=== PATIENT | female | born 1965 | race Caucasian/White ===

== ENCOUNTER → 2020-01-14 14:17 | Outpatient (CLI) | payer OTHER, SELFPAY ==
[2020-01-14 17:05] LABS: Influenza A - CEPHEID Flu A NEGATIVE (NEGATIVE); Influenza B - CEPHEID Flu B NEGATIVE (NEGATIVE)
[2020-01-16 14:36] LABS: COVID19 Sendout Not Detected (Not Detected)
== END ==
PROVIDERS: Visit Provider Physician Assistant
DX: Z20.828 Contact with and (suspected) exposure to other viral communicable diseases (principal); R05 Cough
CPT/HCPCS: 87502; 87635

== ENCOUNTER → 2020-08-21 | Outpatient (CLI) | payer OTHER, SELFPAY | PROVIDERS: Referring Provider Internal Medicine; Visit Provider Internal Medicine | DX: Z23 Encounter for immunization (principal) | CPT/HCPCS: 90471; 90686 ==

== ENCOUNTER 2020-09-26 19:18 | Emergency (ER) | payer OTHER, SELFPAY ==
[2020-09-26] VITALS (12 sets, daily range): BP systolic 136–207; BP diastolic 69–101; PULSE 78–129; RESP 16–24; TEMP 37; O2SAT 95–99
--- NOTE | 2020-09-26 19:30 | DI.RAD.S_ITS ---
PROCEDURE: XR CHEST 1V INDICATIONS: shortness of breath TECHNIQUE: One view of the chest was acquired. COMPARISON: None. FINDINGS: Surgical changes and devices: None. Lungs and pleura: Lungs are clear. No pleural effusions or pneumothorax. Mediastinum: Mediastinal contours appear normal. Heart size is normal. Bones and chest wall: No suspicious bony lesions. Overlying soft tissues appear unremarkable. IMPRESSION: No acute cardiopulmonary disease process. Dictated by: Dorys Dexter MD, PhD on 09/26/2020 at 21:14 Approved by: Dorys Dexter MD, PhD on 09/26/2020 at 21:14
[2020-09-26 19:51] LABS: COVID19 -Nasal RAPID Negative (Negative)
[2020-09-26 20:05] LABS: Add Manual Diff / Slide Review NO; Basophils Absolute Auto 0 /uL (0-100); Basophils Percent Auto 0.6 % (0-2); Eosinophils Absolute Auto 100 /uL (0-450); Eosinophils Percent Auto 1.3 % (2-4); Hematocrit 41.5 % (36-46); Lymphocytes Absolute Auto 2500 /uL (1100-4500); Lymphocytes Percent Auto 33.7 % (25-40); Mean Corpuscular HGB Conc 33.8 % (30-36); Mean Corpuscular Hemoglobin 30.5 PG (26-34); Mean Corpuscular Volume 90.3 fL (80-100); Monocytes Absolute Auto 300 /uL (0-900); Monocytes Percent Auto 4.2 % (3-14); Neutrophils Absolute Auto 4400 /uL (1500-7000); Neutrophils Percent Auto 60.2 % (50-75); Platelet Count 366 X10^3/uL (150-400); Red Cell Distribution Width 12.5 % (11.6-14.8); White Blood Cell Count 7.3 X10^3/uL (4.5-11.0)
[2020-09-26] MEDS: SODIUM CHLORIDE 0.9% 1,000 ML 125 ML IV (20:15)
[2020-09-26 20:16] LABS: Lactate (Lactic Acid) 0.9 mmol/L (0.7-2.1)
[2020-09-26 20:17] LABS: D Dimer < 200 ng/mL (<230)
[2020-09-26 20:20] LABS: Alanine Aminotransferase 35 IU/L (<35); Albumin Globulin Ratio 1.3 (1.0-2.8); Alkaline Phosphatase 79 U/L (38-126); Aspartate Aminotransferase 32 IU/L (14-36); BUN Creatinine Ratio 16.7 (6-22); Bilirubin Total 0.4 mg/dL (0.2-1.3); Blood Urea Nitrogen 16 mg/dL (7-17); C-Reactive Protein Quant < 0.5 mg/dL (<1.0); Calcium 9.9 mg/dL (8.4-10.2); Carbon Dioxide 33 mmol/L (22-32); Chloride 102 mmol/L (98-107); Estimated Glomerular Filt Rate > 60.0 mL/min (>60); Globulin 3.8 g/dL (1.7-4.1); Glucose 125 mg/dL (70-100); HEMOLYSIS < 15 (0-50); Lactate Dehydrogenase 472 U/L (313-618); Potassium 3.9 mmol/L (3.4-5.1); Sodium 141 mmol/L (137-145); Total Protein 8.8 g/dL (6.3-8.2)
[2020-09-26 20:28] LABS: NT-proBNP (BNP-Adult 18+) 566 pg/mL (<125)
[2020-09-26 20:32] LABS: Procalcitonin < 0.05 ng/mL (<0.5)
[2020-09-26 20:54] LABS: Ferritin 54 ng/mL (11-264)
[2020-09-26 21:37] LABS: COVID19 -Nasal RAPID Negative (Negative)
--- NOTE | 2020-09-26 22:41 | ED_ITS ---
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 She states her headache came on rather gradually in seems to be worsened by episodes of vomiting. She denies any photophobia or provocation with loud noise. She denies focal neurologic findings such as blurred vision, trouble with speech or numbness, tingling or weakness. She denies runny nose or sore throat but has had some dry and hacking cough. She feels fatigued and exertion seems to make her shortness of breath worse. She has also had some anterior chest pain that seems to be worse with coughing and deep breaths. She denies any exertional component to her pain. She has had a few episodes of nausea and vomiting but denies any abdominal pain, diarrhea, constipation or urinary complaints such as dysuria, frequency or urgency. She has been exposed to COVID patient's but always in full PPE. She has had similar headaches and chest pain with elevated blood pressure in the past. MD Complaint: headache Onset (ago): hour(s) Onset description: gradual Quality: aching and throbbing Relieving factors: nothing Other symptoms: chest pain and cough Treatments prior to arrival: none Review of Systems Constitutional Constitutional: Denies chills, Reports fatigue, Denies fever(s), Denies frequent falls, Denies lethargy and Denies weakness Eyes Eyes: Denies change in vision, Denies eye discharge, Denies irritation and Denies loss of vision ENT Ears, Nose, Mouth, and Throat: Denies change in voice, Denies dizziness, Denies neck pain, Denies sore throat and Denies throat swelling Cardiovascular Cardiovascular: Reports chest pain, Denies irregular heart rhythm, Denies lightheadedness, Denies palpitations, Reports dyspnea, Reports dyspnea on exertion and Denies orthopnea Respiratory Respiratory: Denies cough, Reports dyspnea, Reports dyspnea on exertion and D enies wheezing Gastrointestinal Gastrointestinal: Denies abdominal pain, Denies change in bowel habits, Denies diarrhea, Denies nausea and Denies vomiting Musculoskeletal Musculoskeletal: Denies neck pain and Denies numbness Integumentary/Breasts Skin/Breast: Denies pruritus, Denies erythema, Denies rash and Denies wounds Neurologic Neurologic: Denies behavioral changes, Denies confusion, Denies dizziness, Denies frequent falls, Denies loss of vision, Denies numbness and Denies weakness Psychiatric Psychiatric: Denies anxiety, Denies behavioral changes, Denies confusion, Denies depression, Denies homicidal ideation and Denies suicidal ideation Endocrine Endocrine: Reports fatigue, Denies flushing and Denies palpitations Hematologic/Lymphatic Hematologic/Lymphatic: Denies easy bruising Allergic/Immunologic Allergic/Immunologic: Denies urticaria, Denies throat swelling and Denies wheezing Patient History Social History Smoking Status: Never smoker Smoking Status: Never smoker alcohol intake frequency: 0-2 drinks per day Alcohol type: beer Substance Use Type: does not use Exam Narrative Exam Narrative: GENERAL: [55] year old patient appears stated age. Well- nourished, well-developed patient, in moderate distress, clearly uncomfortable HEAD: Atraumatic. Normocephalic. EYES: Pupils equal round and reactive. Extraocular motions intact. No scleral icterus. No injection or drainage. ENT: Nose without bleeding, purulent drainage. Throat without erythema, tonsillar hypertrophy or exudate. Airway patent. NECK: Trachea midline. Non tender. No meningeal signs CARDIOVASCULAR: Tachycardic but regular rhythm without murmurs, gallops, or rubs. RESPIRATORY: Clear to auscultation. Breath sounds equal bilaterally. No wheezes, rales, or rhonchi. GASTROINTESTINAL: Abdomen soft, non-tender, nondistended. EXTREMITIES: No edema or joint tenderness. BACK: Nontender without deformity or crepitance. No flank tenderness. NEURO: AOx3. SKIN: No rash or erythema of visible areas NIH Stroke Scale 1a. LOC: Patient is alert and keenly responsive (0) 1b. LOC Questions: Patient answers both LOC questions accurately (0) 1c. LOC Commands: Patient performs both tasks correctly (0) 2. Best Gaze: Normal (0) 3. Visual: No visual loss (0) 4. Facial palsy: Normal symmetrical movements (0) 5. Motor arm: No drift (0) 6. Motor leg: No drift (0) 7. Limb ataxia: Absent (0) 8. Sensory: Normal (0) 9. Best language: No aphasia; normal (0) 10. Dysarthria: Normal (0) 11. Extinction and inattention: No abnormality (0) NIHSS: 0 Initial Vital Signs Initial Vital Signs: Vital Signs Temperature 98.6 F 09/26/20 19:28 Pulse Rate 129 H 09/26/20 19:28 Respiratory Rate 20 09/26/20 19:28 Blood Pressure 207/101 H 09/26/20 19:28 Pulse Oximetry 98 09/26/20 19:28 Course Orders Ordered: ED Orders 09/26/20 19:30 XR chest 1V Stat 09/26/20 19:34 COVID19 Stat EKG-12 Lead Stat 09/26/20 19:51 C-Reactive Protein Quant Stat Complete Blood Count AUTO DIFF Stat Comprehensive Metabolic Panel Stat D Dimer Stat Ferritin Stat Lactate (Lactic Acid) Stat Lactate Dehydrogenase Stat NT-proBNP (BNP-Adult 18+) Stat Procalcitonin Stat Troponin & CK Cardiac Panel Stat 09/26/20 20:17 Blood Culture Stat 09/26/20 20:21 COVID19 Stat 09/26/20 22:55 Troponin I Stat Discontinued Medications Sodium Chloride (Normal Saline 0.9%) 1,000 mls @ 125 mls/hr IV CONT PAULINA Last Infusion: 09/27/20 00:19 Dose: 0 mls/hr Documented by: Admin: 09/26/20 20:15 Dose: 125 mls/hr Documented by: KATHY Ketorolac Tromethamine (Ketorolac 60 Mg/2 Ml Vial) 15 mg IV NOW ONE Stop: 09/26/20 23:33 Last Admin: 09/26/20 23:36 Dose: 15 mg Documented by: KATHY Vital Signs Vital signs: Vital Signs - 8 hr 09/26/20 19:28 09/26/20 19:55 09/26/20 20:00 Temperature 98.6 F Pulse Rate 129 H 96 H 100 H Respiratory Rate 20 18 22 Blood Pressure 207/101 H 151/82 H 151/82 H Pulse Oximetry 98 99 98 09/26/20 20:30 09/26/20 21:00 09/26/20 21:29 Temperature Pulse Rate 98 H 99 H 127 H Respiratory Rate 18 16 24 Blood Pressure 153/72 H 160/73 H 136/69 Pulse Oximetry 97 99 99 09/26/20 21:30 09/26/20 21:55 09/26/20 22:00 Temperature Pulse Rate 103 H 95 H 93 H Respiratory Rate 22 17 Blood Pressure 145/84 H 161/96 H 149/80 H Pulse Oximetry 95 98 96 09/26/20 22:30 09/26/20 23:00 09/26/20 23:30 Temperature Pulse Rate 84 78 89 Respiratory Rate 20 18 19 Blood Pressure 151/86 H 152/79 H 140/74 Pulse Oximetry 99 99 97 09/27/20 00:00 Temperature Pulse Rate 90 Respiratory Rate 20 Blood Pressure 138/78 Pulse Oximetry 96 MDM - Headache Lab Data Result diagrams: 09/26/20 19:51 09/26/20 19:51 Labs: Lab Results 09/26/20 09/26/20 09/26/20 Range/Units 19:34 19:51 19:51 WBC (4.5-11.0) X10^3/uL RBC (4.0-5.2) X10^6/uL Hgb (12.0-16.0) g/dL Hct (36-46) % MCV (80-100) fL MCH (26-34) PG MCHC (30-36) % RDW (11.6-14.8) % Plt Count (150-400) X10^3/uL Neut % (Auto) (50-75) % Lymph % (Auto) (25-40) % [place] % (Auto) (3-14) % Eos % (Auto) (2-4) % Baso % (Auto) (0-2) % Neut # (Auto) (4582-7183) /uL Lymph # (Auto) (7458-2297) /uL [place] # (Auto) (0-900) /uL Eos # (Auto) (0-450) /uL Baso # (Auto) (0-100) /uL D-Dimer < 200 (<230) ng/mL Sodium (137-145) mmol/L Potassium (3.4-5.1) mmol/L Chloride (98-107) mmol/L Carbon Dioxide (22-32) mmol/L BUN (7-17) mg/dL Creatinine (0.52-1.04) mg/dL Estimated GFR (>60) mL/min BUN/Creatinine Ratio (6-22) Glucose (70-100) mg/dL Lactate (0.7-2.1) mmol/L Calcium (8.4-10.2) mg/dL Ferritin (11-264) ng/mL Total Bilirubin (0.2-1.3) mg/dL AST (14-36) IU/L ALT (<35) IU/L Alkaline Phosphatase (38-126) U/L Lactate Dehydrogenase (313-618) U/L Total Creatine Kinase (30-135) U/L CK-MB (CK-2) CK-MB (CK-2) Rel Index Troponin I (0.01-0.034) ng/mL C-Reactive Protein (<1.0) mg/dL NT-Pro-B Natriuret Pep (<125) pg/mL Total Protein (6.3-8.2) g/dL Albumin (3.5-5.0) g/dL Globulin (1.7-4.1) g/dL Albumin/Globulin Ratio (1.0-2.8) Procalcitonin < 0.05 (<0.5) ng/mL COVID-19 PCR Negative (Negative) 09/26/20 09/26/20 09/26/20 Range/Units 19:51 19:51 19:51 WBC 7.3 (4.5-11.0) X10^3/uL RBC 4.60 (4.0-5.2) X10^6/uL Hgb 14.0 (12.0-16.0) g/dL Hct 41.5 (36-46) % MCV 90.3 (80-100) fL MCH 30.5 (26-34) PG MCHC 33.8 (30-36) % RDW 12.5 (11.6-14.8) % Plt Count 366 (150-400) X10^3/uL Neut % (Auto) 60.2 (50-75) % Lymph % (Auto) 33.7 (25-40) % [place] % (Auto) 4.2 (3-14) % Eos % (Auto) 1.3 L (2-4) % Baso % (Auto) 0.6 (0-2) % Neut # (Auto) 4400 (6139-6621) /uL Lymph # (Auto) 2500 (9714-4862) /uL [place] # (Auto) 300 (0-900) /uL Eos # (Auto) 100 (0-450) /uL Baso # (Auto) 0 (0-100) /uL D-Dimer (<230) ng/mL Sodium 141 (137-145) mmol/L Potassium 3.9 (3.4-5.1) mmol/L Chloride 102 (98-107) mmol/L Carbon Dioxide 33 H (22-32) mmol/L BUN 16 (7-17) mg/dL Creatinine 0.96 (0.52-1.04) mg/dL Estimated GFR > 60.0 (>60) mL/min BUN/Creatinine Ratio 16.7 (6-22) Glucose 125 H (70-100) mg/dL Lactate 0.9 (0.7-2.1) mmol/L Calcium 9.9 (8.4-10.2) mg/dL Ferritin 54 (11-264) ng/mL Total Bilirubin 0.4 (0.2-1.3) mg/dL AST 32 (14-36) IU/L ALT 35 H (<35) IU/L Alkaline Phosphatase 79 (38-126) U/L Lactate Dehydrogenase 472 (313-618) U/L Total Creatine Kinase 75 (30-135) U/L CK-MB (CK-2) TNP CK-MB (CK-2) Rel Index TNP Troponin I < 0.012 (0.01-0.034) ng/mL C-Reactive Protein < 0.5 (<1.0) mg/dL NT-Pro-B Natriuret Pep 566 H (<125) pg/mL Total Protein 8.8 H (6.3-8.2) g/dL Albumin 5.0 (3.5-5.0) g/dL Globulin 3.8 (1.7-4.1) g/dL Albumin/Globulin Ratio 1.3 (1.0-2.8) Procalcitonin (<0.5) ng/mL COVID-19 PCR (Negative) 09/26/20 09/26/20 Range/Units 20:21 22:55 WBC (4.5-11.0) X10^3/uL RBC (4.0-5.2) X10^6/uL Hgb (12.0-16.0) g/dL Hct (36-46) % MCV (80-100) fL MCH (26-34) PG MCHC (30-36) % RDW (11.6-14.8) % Plt Count (150-400) X10^3/uL Neut % (Auto) (50-75) % Lymph % (Auto) (25-40) % [place] % (Auto) (3-14) % Eos % (Auto) (2-4) % Baso % (Auto) (0-2) % Neut # (Auto) (0694-5635) /uL Lymph # (Auto) (5894-3473) /uL [place] # (Auto) (0-900) /uL Eos # (Auto) (0-450) /uL Baso # (Auto) (0-100) /uL D-Dimer (<230) ng/mL Sodium (137-145) mmol/L Potassium (3.4-5.1) mmol/L Chloride (98-107) mmol/L Carbon Dioxide (22-32) mmol/L BUN (7-17) mg/dL Creatinine (0.52-1.04) mg/dL Estimated GFR (>60) mL/min BUN/Creatinine Ratio (6-22) Glucose (70-100) mg/dL Lactate (0.7-2.1) mmol/L Calcium (8.4-10.2) mg/dL Ferritin (11-264) ng/mL Total Bilirubin (0.2-1.3) mg/dL AST (14-36) IU/L ALT (<35) IU/L Alkaline Phosphatase (38-126) U/L Lactate Dehydrogenase (313-618) U/L Total Creatine Kinase (30-135) U/L CK-MB (CK-2) CK-MB (CK-2) Rel Index Troponin I < 0.012 (0.01-0.034) ng/mL C-Reactive Protein (<1.0) mg/dL NT-Pro-B Natriuret Pep (<125) pg/mL Total Protein (6.3-8.2) g/dL Albumin (3.5-5.0) g/dL Globulin (1.7-4.1) g/dL Albumin/Globulin Ratio (1.0-2.8) Procalcitonin (<0.5) ng/mL COVID-19 PCR Negative (Negative) Imaging Data Chest x-ray: Radiologist's Impression: Saniya Delgado 55 F [address] [id number] ReportSigned Patient: David Delgado#: [id number]: 1965Acct:[id number]/Sex: 55 / FDate of Service: 09/26/20Loc: EDAccession Number: [id number] Procedure: XR chest 1V Ordering Provider: Gilmar Barrera D.O. PROCEDURE: XR CHEST 1V INDICATIONS: shortness of breath TECHNIQUE: One view of the chest was acquired. COMPARISON: None. FINDINGS: Surgical changes and devices: None. Lungs and pleura: Lungs are clear. No pleural effusions or pneumothorax. Mediastinum: Mediastinal contours appear normal. Heart size is normal. Bones and chest wall: No suspicious bony lesions. Overlying soft tissues appear unremarkable. IMPRESSION: No acute cardiopulmonary disease process. Dictated by: Dorys Dexter MD, PhD on 09/26/2020 at 21:14 Approved by: Dorys Dexter MD, PhD on 09/26/2020 at 21:14 [facility] Narrative Medical decision making narrative: Vitals and symptoms are greatly improved after above stated therapies. She has no oxygen requirements and no abnormal lung findings on exam or imaging. She's had two COVID swabs return negative. Cardiac ischemia considered as a possible part of the picture but EKG is non ischemic, and troponin x2 were normal. Multiple causes of chest pain considered including NH, PE, pneumothorax, pneumonia, aortic dissection, and pleurisy. Patient reports no radiation, no diaphoresis, no provocation with exertion, and no vomiting. We had a lengthy discussion about most likely diagnosis and a viral syndrome remains at the top of the list, and though her COVID is negative she is early in the course of illness and it is known that we can experience false negatives early in the process. 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 We discussed her taking baby aspirin daily for its ability to inhibit viral replication, as well as antiplatelet activities. Furthermore we discussed obtaining a home pulse oximeter. She's been given return precautions and has had her questions answered to her apparent satisfaction. Discharge Plan Departure Patient Disposition: Home Clinical Impression: Acute viral syndrome Instructions: Coronavirus Disease 2019 Activity Restrictions/Additional Instructions: *You have been diagnosed with [viral syndrome, but due to the timing of your symptoms and presentation we cannot rule out COVID-19] *What to do: * per recommendations from the CDC and the [facility] Department of Health * stay home except to get medical care. Restrict activities outside your home, except for getting medical care. Do not go to work, school, or public areas. Avoid using public transportation, ride sharing, or taxis. * separate yourself from other people in your home. * call ahead before visiting your doctor * Wear a facemask * Cover your coughs and sneezes * Clean your hands often * Avoid sharing household items * Clean all high-touch services every day * Monitor your symptoms and seek prompt medical attention if your illness is worsening, particularly with difficulty in breathing. You may discontinue your isolation when: 1. You have been fever-free for at least 24 hours without the use of fever reducing medication, AND 2. Your symptoms are getting better 3. At least 10 days have passed since symptoms first appeared Individuals with laboratory confirmed COVID-19 who have not had any symptoms may discontinue home isolation when at least 10 days have passed since the date of their first COVID-19 diagnostic test and have had no subsequent illness
[2020-09-26 22:55] LABS: Creatine Kinase 75 U/L (30-135)
[2020-09-26 23:09] LABS: Troponin I < 0.012 ng/mL (0.01-0.034)
[2020-09-26 23:26] LABS: Troponin I < 0.012 ng/mL (0.01-0.034)
[2020-09-26] MEDS: KETOROLAC 60 MG/2 ML VIAL 15 MG IV (23:36)
[2020-09-27] VITALS: BP 138/78; PULSE 90; RESP 20; O2SAT 96
== END 2020-09-27 00:20 | disposition home or self-care (01) ==
PROVIDERS: Emergency Provider Emergency Medicine
DX: B34.9 Viral infection, unspecified (principal); R06.02 Shortness of breath; R51.9 Headache, unspecified; R05 Cough; R11.2 Nausea with vomiting, unspecified; I10 Essential (primary) hypertension; R07.9 Chest pain, unspecified; Z20.828 Contact with and (suspected) exposure to other viral communicable diseases
CPT/HCPCS: 36415; 71045; 80053; 82550; 82728; 83605; 83615; 83880; 84145; 84484; 85025; 85379; 86140; 87040; 87635; 93005; 93010; 96361; 96374; 99281; 99284; J1885

== ENCOUNTER → 2020-10-02 11:47 | Outpatient (CLI) | payer OTHER, SELFPAY ==
[2020-10-02 12:31] LABS: Influenza A - CEPHEID Flu A NEGATIVE (NEGATIVE); Influenza B - CEPHEID Flu B NEGATIVE (NEGATIVE)
== END ==
PROVIDERS: Visit Provider Physician Assistant
DX: R50.9 Fever, unspecified (principal)
CPT/HCPCS: 87502

== ENCOUNTER → 2020-10-02 11:57 | Outpatient (CLI) | payer OTHER, SELFPAY ==
--- NOTE | 2020-10-02 11:59 | DI.RAD.S_ITS ---
PROCEDURE: XR CHEST 2V INDICATIONS: cough/shortness of breath TECHNIQUE: 2 views of the chest were acquired. COMPARISON: [facility], , XR CHEST 1V, 09/26/2020, 20:38. FINDINGS: Surgical changes and devices: None. Lungs and pleura: Lungs are clear. No pleural effusions or pneumothorax. Mediastinum: Mediastinal contours are normal. Heart size is normal. Bones and chest wall: No suspicious bony abnormalities. Soft tissues appear unremarkable. IMPRESSION: No acute cardiopulmonary abnormality. Dictated by: Michael Cooper M.D. on 10/02/2020 at 12:34 Approved by: Michael Cooper M.D. on 10/02/2020 at 12:35
== END ==
PROVIDERS: Referring Provider Physician Assistant; Visit Provider Physician Assistant
DX: R05 Cough (principal); R06.02 Shortness of breath; R50.9 Fever, unspecified
CPT/HCPCS: 71046; 87502

== ENCOUNTER → 2020-10-18 09:03 | Outpatient (CLI) | payer OTHER, SELFPAY ==
[2020-10-18] MEDS: COVID-19 VACC(MODERNA-1)/PF 100 MCG/0.5 ML VIAL IM (09:12)
== END ==
PROVIDERS: Visit Provider Internal Medicine
DX: Z23 Encounter for immunization (principal)
CPT/HCPCS: 0011A; 91301

== ENCOUNTER → 2020-11-14 14:33 | Outpatient (CLI) | payer OTHER, SELFPAY ==
[2020-11-14] MEDS: COVID-19 VACC #2, MRNA(MOD) 100 MCG/0.5 ML VIAL IM (14:37)
== END ==
PROVIDERS: Visit Provider Internal Medicine
DX: Z23 Encounter for immunization (principal)
CPT/HCPCS: 0012A; 91301

== ENCOUNTER 2021-03-23 08:53 | Emergency (ER) | payer OTHER, SELFPAY ==
[2021-03-23] VITALS (14 sets, daily range): BP systolic 140–188; BP diastolic 69–123; PULSE 80–106; RESP 24; TEMP 36.8; O2SAT 95–99; BMI 26.7
--- NOTE | 2021-03-23 09:26 | DI.RAD.S_ITS ---
PROCEDURE: XR CHEST 1V INDICATIONS: suspected sepsis TECHNIQUE: One view of the chest was acquired. COMPARISON: [facility], CR, XR CHEST 2V, 10/02/2020, 13:13. [facility], CR, XR CHEST 1V, 09/26/2020, 20:38. FINDINGS: Surgical changes and devices: None. Lungs and pleura: Lungs are clear. No pleural effusions or pneumothorax. Mediastinum: Mediastinal contours appear normal. Heart size is normal. Bones and chest wall: No suspicious bony lesions. Overlying soft tissues appear unremarkable. IMPRESSION: Normal for age, source of current sepsis symptoms is not seen. Dictated by: Nik Meyer M.D. on 03/23/2021 at 9:27 Approved by: Nik Meyer M.D. on 03/23/2021 at 9:27
[2021-03-23] MEDS: SODIUM CHLORIDE 0.9% 1,000 ML 1000 ML IV (10:00)
[2021-03-23 10:42] LABS: Add Manual Diff / Slide Review NO; Basophils Absolute Auto 100 /uL (0-100); Basophils Percent Auto 0.8 % (0-2); Eosinophils Absolute Auto 100 /uL (0-450); Eosinophils Percent Auto 1.1 % (2-4); Hemoglobin 14.1 g/dL (12.0-16.0); Lymphocytes Absolute Auto 1900 /uL (1100-4500); Lymphocytes Percent Auto 26.3 % (25-40); Mean Corpuscular HGB Conc 33.5 % (30-36); Mean Corpuscular Hemoglobin 30.8 PG (26-34); Monocytes Absolute Auto 400 /uL (0-900); Monocytes Percent Auto 4.8 % (3-14); Neutrophils Absolute Auto 4900 /uL (1500-7000); Platelet Count 323 X10^3/uL (150-400); Red Blood Cell Count 4.56 X10^6/uL (4.0-5.2); Red Cell Distribution Width 13.1 % (11.6-14.8); White Blood Cell Count 7.4 X10^3/uL (4.5-11.0)
[2021-03-23] MEDS: ONDANSETRON 4 MG/2 ML INJ IV (10:49)
[2021-03-23] MEDS: KETOROLAC 30 MG/ML VIAL IV (10:52)
--- NOTE | 2021-03-23 10:54 | ED_ITS ---
HPI - Nausea/Vomiting/Diarrhea General Chief complaint: Nausea/Vomiting/Diarrhea Stated complaint: back strain/nausea/diarrhea Time Seen by Provider: 03/23/21 10:17 Source: patient Mode of arrival: Ambulatory Limitations: no limitations History of Present Illness HPI Narrative: Patient is a 56-year-old female who presents with left flank pain. 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 Patient definitely spasms at times but now seems to be radiating around to her abdomen. She denies pain into her lower extremities. No weakness or pain point vertebral pain. Complaining more of pain in the paraspinal muscles. 2 days ago she had the start of nausea and diarrhea no bloody stools but definitely liquid stools. No fever or chills. She denies painful or frequent urination. MD complaint: nausea and diarrhea Onset (ago): day(s) Description of Diarrhea: watery Quality: cramping Pain Consistency: intermittent Related Data Previous Rx's Medication Instructions Recorded baclofen 20 mg tablet 20 mg PO TID 10 Days #30 tab 03/20/21 cyclobenzaprine 5 mg PO TID PRN #10 tab 03/23/21 ondansetron 4 mg PO Q8H PRN #10 tab 03/23/21 Allergies Allergy/AdvReac Type Severity Reaction Status Date / Time levofloxacin [From Levaquin] Allergy Severe Tendon Verified 03/20/21 11:27 rupture metoclopramide [From Reglan] Allergy Severe Anaphylaxis Verified 03/20/21 11:27 Penicillins Allergy Hives Verified 03/20/21 11:27 promethazine [From Phenergan] AdvReac Verified 03/23/21 10:44 Review of Systems Review of Systems Narrative: GENERAL: Denies chills, fatigue, malaise, fever, sweats, travel HEENT: Denies sinus pain, ear pain, sore throat, difficulty swallowing, neck pain RESPIRATORY: Denies dyspnea, cough, wheezing, hemoptysis, sputum. CARDIOVASCULAR: Denies chest pain, palpitations, orthopnea, edema GASTROINTESTINAL: See HPI : Has flank pain, see HPI MUSCULOSKELETAL: Denies weakness, joint pain, or bony pain SKIN: No rash, no erythema, no pruritus NEUROLOGIC: Denies weakness, dizziness, headache, numbness, change in speech, confusion PSYCHIATRIC: No concerning psychosocial issues. 12 point review of systems is negative except for those stated above and HPI Patient History Surgical History Status post appendectomy Status post cholecystectomy Social History Smoking Status: Never smoker Smoking Status: Never smoker alcohol intake frequency: 0-2 drinks per day Alcohol type: beer Substance Use Type: does not use Exam Initial Vital Signs Initial Vital Signs: Vital Signs Temperature 98.3 F 03/23/21 09:21 Pulse Rate 106 H 03/23/21 09:21 Respiratory Rate 24 03/23/21 09:21 Blood Pressure 188/123 H 03/23/21 09:21 Pulse Oximetry 96 03/23/21 09:21 GENERAL: Alert well-appearing 56-year-old female and in no acute distress. HEENT: Head atraumatic,EOMI, pupils reactive, face symmetric, moist mucous membranes CARDIOVASCULAR: Regular rate and rhythm without murmurs, rubs or gallops. RESPIRATORY: Breath sounds equal bilaterally, no wheezes rales or rhonchi. ABDOMEN: Soft, nontender. Normoactive bowel sounds all 4 quadrants. No guarding or rebound. : Mild left CVA tenderness BACK: No mid line tenderness. EXTREMITIES: Normal range of motion, no clubbing or edema. Neurovascularly intact NEUROLOGICAL: Alert and oriented x4.Normal gait and speech. Cranial nerves II through XII grossly intact. SKIN: Warm, dry, no laceration, no petechiae, no rashes or lesions. Course Orders Ordered: ED Orders 03/23/21 10:10 GI Panel (Film Array) Stat 03/23/21 10:15 Blood Culture Stat Complete Blood Count AUTO DIFF Stat Comprehensive Metabolic Panel Stat Lactate (Lactic Acid) Stat Lipase Stat Procalcitonin Stat 03/23/21 10:54 CT abdomen pelvis w con Stat Discontinued Medications Acetaminophen (Acetaminophen 325 Mg Tablet) 975 mg PO NOW ONE Stop: 03/23/21 14:17 Last Admin: 03/23/21 14:58 Dose: Not Given Documented by: RSTONE Sodium Chloride (Normal Saline 0.9%) 1,000 mls @ 1,000 mls/hr IV BOLUS ONE Stop: 03/23/21 10:25 Last Infusion: 03/23/21 11:55 Dose: 0 mls/hr Documented by: Admin: 03/23/21 10:00 Dose: 1,000 mls/hr Documented by: DEVIN Ketorolac Tromethamine (Ketorolac 30 Mg/Ml Vial) 30 mg IV NOW ONE Stop: 03/23/21 10:51 Last Admin: 03/23/21 10:52 Dose: 30 mg Documented by: DEVIN Ondansetron HCl (Ondansetron 4 Mg/2 Ml Inj) 4 mg IV NOW ONE Stop: 03/23/21 10:45 Last Admin: 03/23/21 10:49 Dose: 4 mg Documented by: DEVIN Vital Signs Vital signs: Vital Signs - 8 hr 03/23/21 10:30 03/23/21 10:31 03/23/21 11:00 Pulse Rate 90 90 80 Blood Pressure 169/84 H 154/89 H Pulse Oximetry 96 96 95 03/23/21 11:30 03/23/21 12:00 03/23/21 12:30 Pulse Rate 81 86 80 Blood Pressure 141/87 H 140/69 145/80 H Pulse Oximetry 95 96 97 03/23/21 13:00 03/23/21 13:30 03/23/21 13:33 Pulse Rate 83 92 H Blood Pressure 142/77 H 158/83 H Pulse Oximetry 97 97 99 03/23/21 15:18 Pulse Rate Blood Pressure 175/109 H Pulse Oximetry MDM - Nausea/Vomiting/Diarrhea Lab Data Attestation: I reviewed the patient's lab results. Result diagrams: 03/23/21 10:15 03/23/21 10:15 Labs: Lab Results 03/23/21 03/23/21 03/23/21 Range/Units 10:10 10:15 10:15 WBC 7.4 (4.5-11.0) X10^3/uL RBC 4.56 (4.0-5.2) X10^6/uL Hgb 14.1 (12.0-16.0) g/dL Hct 42.0 (36-46) % MCV 92.0 (80-100) fL MCH 30.8 (26-34) PG MCHC 33.5 (30-36) % RDW 13.1 (11.6-14.8) % Plt Count 323 (150-400) X10^3/uL Neut % (Auto) 67.0 (50-75) % Lymph % (Auto) 26.3 (25-40) % Davidson % (Auto) 4.8 (3-14) % Eos % (Auto) 1.1 L (2-4) % Baso % (Auto) 0.8 (0-2) % Neut # (Auto) 4900 (3366-8767) /uL Lymph # (Auto) 1900 (6616-2275) /uL Davidson # (Auto) 400 (0-900) /uL Eos # (Auto) 100 (0-450) /uL Baso # (Auto) 100 (0-100) /uL Sodium 140 (137-145) mmol/L Potassium 4.0 (3.4-5.1) mmol/L Chloride 103 (98-107) mmol/L Carbon Dioxide 28 (22-32) mmol/L BUN 13 (7-17) mg/dL Creatinine 0.66 (0.52-1.04) mg/dL Estimated GFR > 60.0 (>60) mL/min BUN/Creatinine Ratio 19.7 (6-22) Glucose 119 H (70-100) mg/dL Lactate (0.7-2.1) mmol/L Calcium 10.4 H (8.4-10.2) mg/dL Total Bilirubin 0.5 (0.2-1.3) mg/dL AST 39 H (14-36) IU/L ALT 37 H (<35) IU/L Alkaline Phosphatase 74 (38-126) U/L Total Protein 8.7 H (6.3-8.2) g/dL Albumin 4.9 (3.5-5.0) g/dL Globulin 3.8 (1.7-4.1) g/dL Albumin/Globulin Ratio 1.3 (1.0-2.8) Lipase 59 (23-300) U/L Procalcitonin 0.05 (<0.5) ng/mL Stl C. cayetanensis PCR Not detected (Not Detect) Stool Rotavirus (PCR) Not detected (Not Detect) Stool Adenovirus (PCR) Not detected (Not Detect) Stool Astrovirus (PCR) Not detected (Not Detect) Stool Cryptosporidium PCR Not detected (Not Detect) Stl E.coli Shiga Tox PCR Not detected (Not Detect) St Sh/Enteroin Ecoli PCR Not detected (Not Detect) Stool E coli O157 PCR Not detected (Not Detect) Stl Enterotoxigenic E PCR Not detected (Not Detect) Stool EPEC (PCR) Not detected (Not Detect) Stl E. histolytica PCR Not detected (Not Detect) Stool Giardia Lamblia PCR Not detected (Not Detect) Stool Sapovirus (PCR) Not detected (Not Detect) Stl P. shigelloides PCR Not detected (Not Detect) St Y.enterocolitica PCR Not detected (Not Detect) Stool Vibrio (PCR) Not detected (Not Detect) Stl Vibrio cholerae PCR Not detected (Not Detect) Stl Enteroaggr Ecoli PCR Not detected (Not Detect) Stl Norovirus GI/GII PCR Not detected (Not Detect) Campylobacter (PCR) Not detected (Not Detect) C. difficile Tox (PCR) Not detected (Not Detect) Salmonella (PCR) Not detected (Not Detect) 03/23/21 Range/Units 10:15 WBC (4.5-11.0) X10^3/uL RBC (4.0-5.2) X10^6/uL Hgb (12.0-16.0) g/dL Hct (36-46) % MCV (80-100) fL MCH (26-34) PG MCHC (30-36) % RDW (11.6-14.8) % Plt Count (150-400) X10^3/uL Neut % (Auto) (50-75) % Lymph % (Auto) (25-40) % Davidson % (Auto) (3-14) % Eos % (Auto) (2-4) % Baso % (Auto) (0-2) % Neut # (Auto) (4257-9638) /uL Lymph # (Auto) (2780-1273) /uL Davidson # (Auto) (0-900) /uL Eos # (Auto) (0-450) /uL Baso # (Auto) (0-100) /uL Sodium (137-145) mmol/L Potassium (3.4-5.1) mmol/L Chloride (98-107) mmol/L Carbon Dioxide (22-32) mmol/L BUN (7-17) mg/dL Creatinine (0.52-1.04) mg/dL Estimated GFR (>60) mL/min BUN/Creatinine Ratio (6-22) Glucose (70-100) mg/dL Lactate 1.2 (0.7-2.1) mmol/L Calcium (8.4-10.2) mg/dL Total Bilirubin (0.2-1.3) mg/dL AST (14-36) IU/L ALT (<35) IU/L Alkaline Phosphatase (38-126) U/L Total Protein (6.3-8.2) g/dL Albumin (3.5-5.0) g/dL Globulin (1.7-4.1) g/dL Albumin/Globulin Ratio (1.0-2.8) Lipase (23-300) U/L Procalcitonin (<0.5) ng/mL Stl C. cayetanensis PCR (Not Detect) Stool Rotavirus (PCR) (Not Detect) Stool Adenovirus (PCR) (Not Detect) Stool Astrovirus (PCR) (Not Detect) Stool Cryptosporidium PCR (Not Detect) Stl E.coli Shiga Tox PCR (Not Detect) St Sh/Enteroin Ecoli PCR (Not Detect) Stool E coli O157 PCR (Not Detect) Stl Enterotoxigenic E PCR (Not Detect) Stool EPEC (PCR) (Not Detect) Stl E. histolytica PCR (Not Detect) Stool Giardia Lamblia PCR (Not Detect) Stool Sapovirus (PCR) (Not Detect) Stl P. shigelloides PCR (Not Detect) St Y.enterocolitica PCR (Not Detect) Stool Vibrio (PCR) (Not Detect) Stl Vibrio cholerae PCR (Not Detect) Stl Enteroaggr Ecoli PCR (Not Detect) Stl Norovirus GI/GII PCR (Not Detect) Campylobacter (PCR) (Not Detect) C. difficile Tox (PCR) (Not Detect) Salmonella (PCR) (Not Detect) Urine Dip Bedside Urine Glucose Negative Bedside Urine Bilirubin - Negative Bedside Urine Ketone - Negative Urine Specific [place] 1.020 Bedside Urine Occult Blood - Negative Bedside Urine pH 6.0 Bedside Urine Protein - Negative Bedside Urine Urobilinogen - Negative Bedside Urine Nitrite - Negative Bedside Urine Leukocytes - Negative Esterase Imaging Data CT scan - abdomen/pelvis: Radiologist's Impression: PROCEDURE: CT ABDOMEN PELVIS W CON INDICATIONS: left flank pain and abdominal pain TECHNIQUE: After the administration of intravenous contrast, 5 mm thick sections acquired from the diaphragm to the symphysis. 5 mm coronal and sagittal reformats were acquired. For radiation dose reduction, the following was used: automated exposure control, adjustment of mA and/or kV according to patient size. COMPARISON: None. FINDINGS: Image quality: Excellent. ABDOMEN: Lung bases: Lung bases are clear. Heart size is normal. Solid organs: Liver is normal in size and enhancement. Gallbladder appears surgically absent. Biliary system is non dilated. Pancreas enhances normally. Spleen is normal in size and enhancement. No adrenal nodules. Kidneys demonstrate normal size and enhancement, without hydronephrosis. Peritoneum and bowel: Bowel loops demonstrate normal wall thickness and caliber. No free fluid or air. Nodes and vessels: No retroperitoneal or mesenteric adenopathy by size criteria. Aorta and inferior vena cava are normal in size. Miscellaneous: No ventral hernias. PELVIS: Genitourinary: Bladder wall thickness is normal. Miscellaneous: No inguinal hernias or adenopathy. Bones: No suspicious bony lesions. No vertebral body compression fractures. IMPRESSION: Source of left-sided abdominal/flank pain not identified. The urinary tract stone is not seen. No bowel inflammation is seen. There is no evidence of inflammatory process along the paraspinous soft tissues and no evidence of discitis or o steomyelitis is found. Dictated by: Nik Meyer M.D. on 03/23/2021 at 12:02 MDM Narrative Medical decision making narrative: Patient blood work is overall reassuring. CT scan does not show any abnormalities. Awaiting for GI panel unfortunately was not collected at time sample was taken. Fortunately GI panel is negative she has had no further episodes in the ED. She has not required a lot for pain. Back pain seems to be related to musculoskeletal injury and spasm is. She had a specific incident of a moving patient and then having pain day or 2 later. Back pain is not helping at this time I recommend she stop taking it and start Flexeril. I discussed all findings with the patient, Education has been performed regarding treatment plan, diagnosis, warning signs and symptoms and all concerns have been addressed. Verbally agree with and understood all of the above. Discharge Plan Departure Patient Disposition: Home Clinical Impression: Abdominal pain Qualifiers: Abdominal location: left upper quadrant Qualified Code(s): R10.12 - Left upper quadrant pain Instructions: DI for Abdominal Pain-Adult Activity Restrictions/Additional Instructions: *You have been diagnosed with abdominal pain, back spasm *What to do: At this time blood work is overall reassuring CT scan negative. GI panel is also negative. Increase fluid intake as tolerated *Continue to take medications as directed--> [facility] [place] Zofran 4 mg every 8 hours as needed for nausea or vomiting Flexeril 5 mg every 8 hours if needed for muscle spasm Stop taking baclofen it does not work for you *Follow up with your primary care provider in 2-3 days *Return to ER if you should have worsening pain, inability to tolerate fluids, fever [or] any new, worsening or concerning symptoms Prescriptions: New ondansetron 4 mg tablet,disintegrating 4 mg PO Q8H PRN (Reason: nausea and vomiting) Qty: 10 RF: 0 cyclobenzaprine 5 mg tablet 5 mg PO TID PRN (Reason: muscle spasm) Qty: 10 RF: 0 No Action baclofen 20 mg tablet 20 mg PO TID 10 Days Qty: 30 RF: 0 Stand Alone Forms: Work Release Note
[2021-03-23 10:57] LABS: Lactate (Lactic Acid) 1.2 mmol/L (0.7-2.1)
[2021-03-23 10:58] LABS: Alanine Aminotransferase 37 IU/L (<35); Albumin 4.9 g/dL (3.5-5.0); Albumin Globulin Ratio 1.3 (1.0-2.8); Alkaline Phosphatase 74 U/L (38-126); Aspartate Aminotransferase 39 IU/L (14-36); BUN Creatinine Ratio 19.7 (6-22); Bilirubin Total 0.5 mg/dL (0.2-1.3); Blood Urea Nitrogen 13 mg/dL (7-17); Calcium 10.4 mg/dL (8.4-10.2); Carbon Dioxide 28 mmol/L (22-32); Chloride 103 mmol/L (98-107); Estimated Glomerular Filt Rate > 60.0 mL/min (>60); Globulin 3.8 g/dL (1.7-4.1); Glucose 119 mg/dL (70-100); HEMOLYSIS < 15 (0-50); Lipase 59 U/L (23-300); Sodium 140 mmol/L (137-145); Total Protein 8.7 g/dL (6.3-8.2)
[2021-03-23 11:15] LABS: Procalcitonin 0.05 ng/mL (<0.5)
[2021-03-23 14:49] LABS: Adenovirus F 40/41 Not Detected (Not Detect); Astrovirus Not Detected (Not Detect); Campylobacter Not Detected (Not Detect); Clostridium difficile toxin AB Not Detected (Not Detect); Cryptosporidium Not Detected (Not Detect); Cyclospora cayetanensis Not Detected (Not Detect); Entamoeba histolytica Not Detected (Not Detect); Enteroaggregative E.coli Not Detected (Not Detect); Enteropathogenic E.coli Not Detected (Not Detect); Enterotoxigenic E.coli It/st Not Detected (Not Detect); Giardia lamblia Not Detected (Not Detect); Norovirus GI/GII Not Detected (Not Detect); Plesiomonsa shigelloides Not Detected (Not Detect); Rotavirus A Not Detected (Not Detect); Salmonella Not Detected (Not Detect); Sapovirus Not Detected (Not Detect); Shiga-like toxin-prod E.coli Not Detected (Not Detect); Shigella/Enteroinvasive E.coli Not Detected (Not Detect); Vibrio Not Detected (Not Detect); Vibrio cholerae Not Detected (Not Detect); Yersinia enterocolitica Not Detected (Not Detect)
== END 2021-03-23 15:20 | disposition home or self-care (01) ==
PROVIDERS: Emergency Provider Emergency Medicine
DX: R10.12 Left upper quadrant pain (principal); R11.0 Nausea; R19.7 Diarrhea, unspecified
CPT/HCPCS: 36415; 71045; 74177; 80053; 81003; 83605; 83690; 84145; 85025; 87040; 87507; 93005; 96361; 96374; 96375; 99284; J1885; J2405

== ENCOUNTER 2021-03-28 23:52 | Emergency (ER) | payer OTHER, SELFPAY ==
[2021-03-29 00:05] VITALS: BP 156/100; PULSE 103; RESP 18; TEMP 36.7; O2SAT 98
--- NOTE | 2021-03-29 00:36 | ED_ITS ---
HPI - Back Pain/Injury General Chief Complaint: Back Pain/Injury Stated Complaint: back spasms/can't walk/sitting painful Time Seen by Provider: 03/28/21 23:53 Source: patient Mode of arrival: Wheelchair Limitations: no limitations History of Present Illness HPI Narrative: Patient is a 56-year-old female here for evaluation of left-sided back spasms and back pain. 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 She states that she was able to finish her shift been it was not until the next morning when she started having back pain. She was seen at the walk-in clinic afterwards and received a Toradol shot and some baclofen which she states only helped for short period of time. After that she was seen by this emergency department. Had CT scans and other workup that was unremarkable. She then has been seen by the walk-in clinic again because of continued symptoms. She states that the discomfort is on the left side of her back. It does extend upper back but now is also down into her left leg. No urinary symptoms. Related Data Previous Rx's Medication Instructions Recorded ondansetron 4 mg PO Q8H PRN #10 tab 03/23/21 cyclobenzaprine 5 mg tablet 5 mg PO TID PRN #30 tab 03/28/21 diazepam [Valium] 5 mg PO BID PRN #7 tab 03/29/21 hydrocodone-acetaminophen 1 tab PO Q6H PRN #6 tab 03/29/21 prednisone 20 mg PO DAILY #4 tab 03/29/21 Allergies Allergy/AdvReac Type Severity Reaction Status Date / Time levofloxacin [From Levaquin] Allergy Severe Tendon Verified 03/28/21 13:20 rupture metoclopramide [From Reglan] Allergy Severe Anaphylaxis Verified 03/28/21 13:20 Penicillins Allergy Hives Verified 03/28/21 13:20 promethazine [From Phenergan] AdvReac Verified 03/28/21 13:20 Review of Systems Constitutional Constitutional: Reports system reviewed and no additional complaints, except as documented Cardiovascular Cardiovascular: Reports system reviewed and no additional complaints, except as documented Respiratory Respiratory: Reports system reviewed and no additional complaints, except as documented Gastrointestinal Gastrointestinal: Reports system reviewed and no additional complaints, except as documented Musculoskeletal Musculoskeletal: Reports back pain, Reports radiating pain into limb and Reports tingling Integumentary/Breasts Skin/Breast: Denies rash Neurologic Neurologic: Reports tingling Hematologic/Lymphatic On Anticoagulants: No Allergic/Immunologic Allergic/Immunologic: Reports system reviewed and no additional complaints, except as documented Patient History Medical History Cough Surgical History Status post appendectomy Status post cholecystectomy Social History Smoking Status: Never smoker Smoking Status: Never smoker alcohol intake frequency: 0-2 drinks per day Alcohol type: beer Substance Use Type: does not use Exam Initial Vital Signs Initial Vital Signs: Vital Signs Temperature 98.1 F 03/29/21 00:05 Pulse Rate 103 H 03/29/21 00:05 Respiratory Rate 18 03/29/21 00:05 Blood Pressure 156/100 H 03/29/21 00:05 Pulse Oximetry 98 03/29/21 00:05 Const General: cooperative and comfortable Limitations: mental status not altered HENKS Head: normal to inspection Resp Effort & Inspection: normal respiratory effort Cardio Rate: tachycardic Back/Spine/Pelvis Thoracic/Lumbar Spine: paraspinal tenderness (Left-sided thoracolumbar paraspinal) Skin Lesions: no lesions Rashes: no rashes Neuro General: patient alert and patient awake Psych Appearance: grossly normal and well kempt Course Orders Ordered: Discontinued Medications Hydrocodone Bitart/Acetaminophen (Hydrocodone/Acet 5/325 Prepack) 1 bottle MISC SEEINSTR ONE Stop: 03/29/21 00:38 Last Admin: 03/29/21 00:43 Dose: 1 bottle Documented by: SAVANNA Diazepam (Diazepam 5 Mg Tablet) 5 mg PO NOW ONE Stop: 03/29/21 00:37 Last Admin: 03/29/21 00:43 Dose: 5 mg Documented by: SAVANNA Prednisone (Prednisone 20 Mg Tablet) 20 mg PO NOW ONE Stop: 03/29/21 00:37 Last Admin: 03/29/21 00:43 Dose: 20 mg Documented by: SAVANNA Vital Signs Vital signs: Vital Signs - 8 hr 03/29/21 00:05 Temperature 98.1 F Pulse Rate 103 H Respiratory Rate 18 Blood Pressure 156/100 H Pulse Oximetry 98 MDM - Back Pain/Injury MDM Narrative Medical decision making narrative: While trying to roll onto her right side she had an acute onset of the symptoms that she has been having for the past several days. During that time was able to feel the paraspinal muscles on the left and there was a obvious fullness of this area that did resolve when her symptoms improved. Given her prior workup here in the emergency department I do feel t hat her symptoms are muscular in origin. The radiation of the symptoms down into her left leg is relatively new. She has been on baclofen and Flexeril without any improvement of symptoms we will switch her to Valium. She was informed that this can make her drowsy. Will also start her on a short course of steroids. Also sent home with pain medication. She was informed that she should not take the Valium and the pain medication together. She has an appointment with a chiropractor tomorrow. Has appointment with a new primary doctor the beginning of next week. Feel that we can hold on further workup for now. She was given return precautions. She expressed understanding and agreement. Discharge Plan Departure Patient Disposition: Home Clinical Impression: Spasm of muscle of lower back Instructions: DI for Back Spasm Activity Restrictions/Additional Instructions: I recommend that you keep all of your scheduled medical appointments. I also recommend that you continue with the conservative measures to include heat/ice/massage/light stretching. The pain medicine and the Valium can both make you drowsy so I do not recommend you take both of these medicines simultaneously. Return to the emergency department for any new or worsening symptoms Prescriptions: New prednisone 20 mg tablet 20 mg PO DAILY Qty: 4 RF: 0 diazepam [Valium] 5 mg tablet 5 mg PO BID PRN (Reason: muscle spasm) Qty: 7 RF: 0 hydrocodone-acetaminophen 5-325 mg tablet 1 tab PO Q6H PRN (Reason: pain) Qty: 6 RF: 0 No Action cyclobenzaprine 5 mg tablet 5 mg PO TID PRN (Reason: muscle spasm) Qty: 30 RF: 0 ondansetron 4 mg tablet,disintegrating 4 mg PO Q8H PRN (Reason: nausea and vomiting) Qty: 10 RF: 0 Referrals: Miscellaneous,Doctor, MD [Primary Care Provider] -
[2021-03-29] MEDS: HYDROCODONE/ACET 5/325 PREPACK 1 BOTTLE MISC (00:43)
[2021-03-29] MEDS: diazePAM 5 MG TABLET PO (00:43)
[2021-03-29] MEDS: predniSONE 20 MG TABLET PO (00:43)
== END 2021-03-29 00:58 | disposition home or self-care (01) ==
PROVIDERS: Emergency Provider Emergency Medicine
DX: M62.830 Muscle spasm of back (principal)
CPT/HCPCS: 99283

== ENCOUNTER → 2021-04-11 14:17 | Outpatient (CLI) | payer OTHER, SELFPAY ==
--- NOTE | 2021-04-11 14:18 | DI.MRI.S_ITS ---
PROCEDURE: MR LUMBAR SPINE WO CON INDICATIONS: Radiculopathy, lumbar region TECHNIQUE: Noncontrast sagittal T1 spin echo and T2 fast echo, sagittal STIR, axial T1 and T2 fast spin echo through the lumbar spine. In cases with scoliosis, additional coronal T2 fast spin echo may be performed. COMPARISON: None. FINDINGS: Image quality: Excellent. Alignment and Curvature: No plain films are available for comparison, for numbering purposes. Thus, for the purposes of this examination, 5 lumbar type vertebral bodies will be presumed, as denoted on the montage panel. This should be confirmed and correlated with plain films, prior to any lumbar spinal intervention. Loss of normal cervical lordosis. Minimal grade 1 retrolisthesis of L2 on L3 and L3 on L4. Bone Marrow: Marrow is of normal overall signal. No acute vertebral body compression fractures. There is a hemangioma at L1. Minimal reactive signal within the endplates adjacent to the L2-L3, L3-L4, L4-L5, and L5-S1 intervertebral discs. Spinal Cord: Conus medullaris terminates at the L2-L3 disc space level. Visualized cord demonstrates normal signal and size. Paraspinous Soft Tissues: No paravertebral masses. T12-L1: Normal appearance. L1-L2: Normal appearance. L2-L3: Normal appearance. L3-L4: Mild disc desiccation and diffuse disc bulge. Mild canal stenosis. No foraminal stenosis. L4-L5: Moderate disc height loss and desiccation. Mild diffuse disc bulge. No significant canal, or foraminal stenosis. L5-S1: Moderate disc height loss and desiccation. Mild diffuse disc bulge. Mild bilateral facet hypertrophy. No significant canal stenosis. Moderate left and no right foraminal stenosis IMPRESSION: 1. Multilevel degenerative disc and facet disease, as well as ligamentum flavum hypertrophy and epidural lipomatosis. 2. Mild multilevel canal stenosis. 3. Multilevel foraminal stenoses, worst at L5-S1 on the left where there is moderate foraminal stenosis. 4. 5 lumbar type vertebral bodies were presumed for the current report. Plain films of the lumbar spine are recommended for confirmation, prior to any lumbar spinal intervention. Dictated by: Sunshine Cotter M.D. on 04/11/2021 at 15:18 Approved by: Sunshine Cotter M.D. on 04/11/2021 at 15:20
== END ==
PROVIDERS: PCP Physician Assistant; Referring Provider Physician Assistant; Visit Provider Physician Assistant
DX: M51.16 Intervertebral disc disorders with radiculopathy, lumbar region (principal); M51.17 Intervertebral disc disorders with radiculopathy, lumbosacral region; M48.07 Spinal stenosis, lumbosacral region; E88.2 Lipomatosis, not elsewhere classified
CPT/HCPCS: 72148

== ENCOUNTER → 2021-09-20 12:19 | Outpatient (CLI) | payer OTHER, SELFPAY | PROVIDERS: PCP Physician Assistant; Referring Provider Internal Medicine; Visit Provider Internal Medicine | DX: Z23 Encounter for immunization (principal) | CPT/HCPCS: 90471; 90682 ==

== ENCOUNTER → 2022-09-23 08:39 | Outpatient (CLI) | payer OTHER, SELFPAY ==
[2022-09-23 09:52] LABS: Add Manual Diff / Slide Review NO; Basophils Absolute Auto 100 /uL (0-100); Basophils Percent Auto 1.2 % (0-2); Eosinophils Absolute Auto 100 /uL (0-450); Eosinophils Percent Auto 2.1 % (2-4); Hematocrit 40.6 % (36-46); Hemoglobin 13.7 g/dL (12.0-16.0); Lymphocytes Absolute Auto 1800 /uL (1100-4500); Mean Corpuscular HGB Conc 33.9 % (30-36); Mean Corpuscular Volume 91.5 fL (80-100); Monocytes Absolute Auto 200 /uL (0-900); Monocytes Percent Auto 5.3 % (3-14); Neutrophils Absolute Auto 2300 /uL (1500-7000); Neutrophils Percent Auto 50.4 % (50-75); Platelet Count 323 X10^3/uL (150-400); Red Blood Cell Count 4.43 X10^6/uL (4.0-5.2); Red Cell Distribution Width 12.5 % (11.6-14.8); White Blood Cell Count 4.5 X10^3/uL (4.5-11.0)
[2022-09-23 10:16] LABS: Alanine Aminotransferase 24 IU/L (<35); Albumin 4.6 g/dL (3.5-5.0); Albumin Globulin Ratio 1.5 (1.0-2.8); Alkaline Phosphatase 58 U/L (38-126); Aspartate Aminotransferase 25 IU/L (14-36); BUN Creatinine Ratio 19.7 (6-22); Bilirubin Total 0.3 mg/dL (0.2-1.3); Blood Urea Nitrogen 14 mg/dL (7-17); Calcium 9.7 mg/dL (8.4-10.2); Carbon Dioxide 32 mmol/L (22-32); Chloride 102 mmol/L (98-107); Cholesterol 251 mg/dL (140-199); Estimated Glomerular Filt Rate > 60 mL/min (>60); Globulin 3.1 g/dL (1.7-4.1); Glucose 101 mg/dL (70-100); HDL Cholesterol 93 mg/dL (40-60); HEMOLYSIS < 15 (0-50); LDL Cholesterol Calculated 135 mg/dL (<100); Potassium 4.5 mmol/L (3.4-5.1); Sodium 141 mmol/L (137-145); Total Protein 7.7 g/dL (6.3-8.2); Triglycerides 114 mg/dL (35-150)
[2022-09-23 10:47] LABS: TSH w/ Reflex to FT4 1.66 uIU/mL (0.47-4.68)
[2022-09-23 18:12] LABS: Hemoglobin A1C% w Est Avg Glu 5.5 % (4.0-6.0)
[2022-09-24 08:13] LABS: Triiodothyronine T3 Total 72 ng/dL (71-180)
== END ==
PROVIDERS: PCP Family Medicine; Referring Provider Family Medicine; Visit Provider Family Medicine
DX: Z13.220 Encounter for screening for lipoid disorders (principal); R63.5 Abnormal weight gain; E11.9 Type 2 diabetes mellitus without complications; R05.3 Chronic cough
CPT/HCPCS: 36415; 80053; 80061; 83036; 84443; 84480; 85025

== ENCOUNTER → 2022-10-15 16:27 | Outpatient (CLI) | payer OTHER, SELFPAY | PROVIDERS: PCP Family Medicine; Referring Provider Internal Medicine; Visit Provider Internal Medicine | DX: Z23 Encounter for immunization (principal) | CPT/HCPCS: 90471; 90686 ==

== ENCOUNTER → 2022-12-31 11:22 | Outpatient (CLI) | payer OTHER, SELFPAY ==
[2022-12-31 13:09] LABS: Hemoglobin A1C% w Est Avg Glu 5.2 % (4.0-6.0)
[2022-12-31 13:12] LABS: Alanine Aminotransferase 29 IU/L (<35); Albumin 4.6 g/dL (3.5-5.0); Albumin Globulin Ratio 1.4 (1.0-2.8); Alkaline Phosphatase 59 U/L (38-126); Aspartate Aminotransferase 29 IU/L (14-36); BUN Creatinine Ratio 21.6 (6-22); Bilirubin Total 0.6 mg/dL (0.2-1.3); Blood Urea Nitrogen 16 mg/dL (7-17); Calcium 9.3 mg/dL (8.4-10.2); Carbon Dioxide 32 mmol/L (22-32); Chloride 99 mmol/L (98-107); Cholesterol 246 mg/dL (140-199); Estimated Glomerular Filt Rate > 60 mL/min (>60); Globulin 3.4 g/dL (1.7-4.1); Glucose 96 mg/dL (70-100); HDL Cholesterol 67 mg/dL (40-60); HEMOLYSIS < 15 (0-50); LDL Cholesterol Calculated 155 mg/dL (<100); Potassium 4.4 mmol/L (3.4-5.1); Sodium 139 mmol/L (137-145); Triglycerides 119 mg/dL (35-150)
[2022-12-31 16:09] LABS: Creatinine Urine Random 137.1 mg/dL
[2022-12-31 16:34] LABS: Microalbumin Urine Random < 0.6 mg/dL (0-1.6)
== END ==
PROVIDERS: PCP Family Medicine; Referring Provider Family Medicine; Visit Provider Family Medicine
DX: E11.9 Type 2 diabetes mellitus without complications (principal); I10 Essential (primary) hypertension; E78.2 Mixed hyperlipidemia
CPT/HCPCS: 36415; 80053; 80061; 82043; 82570; 83036

== ENCOUNTER 2023-04-17 14:46 | Day surgery (SDC) | payer OTHER, SELFPAY ==
[2023-04-17] VITALS (9 sets, daily range): BP systolic 142–162; BP diastolic 60–94; PULSE 64–96; RESP 10–18; TEMP 36.3–36.9; O2SAT 96–100; BMI 23.5
[2023-04-17] MEDS: LACTATED RINGERS 1,000 ML 125 ML IV (15:09)
--- NOTE | 2023-04-17 15:27 | PM.PREOP ---
Pre-operative Note Interval Note History & Physical reviewed/Exam performed by Physician: Yes Changes to H&P: No
--- NOTE | 2023-04-17 15:28 | PM.OP.COLON ---
Operative Date/Time/Diagnoses Date of procedure: 04/17/23 Pre-op diagnosis: family history of colon cancer, positive FIT, screening Post-op diagnosis: same Procedure & Clinicians Study performed: Colonoscopy Same procedure as scheduled: Yes Indications: Screening for colon cancer, positive test, family history of colon cancer Surgeon: Kat Schuler Procedure Notes Procedure in detail: Patient was taken to the endoscopy suite and placed in a left lateral decubitus position. A time-out was performed. With the help of anesthesiology provider, conscious sedation was induced and monitored throughout the case. A digital rectal exam was performed and there were no masses or strictures. The colonoscope was introduced into the anal canal and advanced through to the cecum. Manual manipualtion and abdominal pressure were required to traverse the colon. A photograph of the appendiceal orifice was obtained. The bowel prep was good/poor [place] bowel prep score of 2/3. The main issue with the prep was some hard particulates, like seeds, that were continuing to effect the suction tubing in the scope. As a result there were some areas where the liquid could not be fully evacuated and smaller polyps may have been missed in these few areas. The scope was withdrawn for a total of 15 minutes and no polyps were seen. There was evidence of scope trauma with mild/moderate bleeding of the mucosa in the sigmoid colon, of which a photograph was obtained. The scope was then withdrawn into the anal canal and internal hemorrhoidal piles appeared normal. Findings: other findings (seeds in prep that limited suction use resulting in a sub optimal exam in a few segments of the colon. ) Specimen(s): none sent Post-procedure Recommendations: Colonoscopy in 3 years Plan for aftercare: There were no polyps seen and I can feel confident that no major lesions are present. But because of the poor functioning of the suction and my inability to clear a few of the puddles of prep that remained in colon I would recommend a 3 year follow-up. With a family history of colon cancer and no polyps a 5 year follow-up would be recommended, so this is just 2 years had that to err on the safe side of safety.
[2023-04-17] MEDS: ONDANSETRON 4 MG/2 ML INJ IV (16:45)
[2023-04-17] MEDS: KETOROLAC 30 MG/ML VIAL IV (16:49)
[2023-04-17] MEDS: fentaNYL 100 MCG/2 ML INJ (17:20)
[2023-04-17] MEDS: fentaNYL 100 MCG/2 ML INJ 50 MCG IV (17:35)
[2023-04-17] MEDS: HYDROCODONE/ACET 5/325 TABLET 1 TAB PO (17:38)
[2023-04-17] MEDS: OXYCODONE/ACETAMINOPHEN 5/325 TABLET 1 TAB PO (18:08)
== END 2023-04-17 18:12 | disposition home or self-care (01) ==
PROVIDERS: PCP Nurse Practitioner Family; Referring Provider Surgery; Visit Provider Surgery
PROC: 0DJD8ZZ Inspection of Lower Intestinal Tract, Via Natural or Artificial Opening Endoscopic (ICD-10-PCS; CPT 45378; principal; 2023-04-17 15:45)
DX: Z12.11 Encounter for screening for malignant neoplasm of colon (principal); R19.5 Other fecal abnormalities; Z80.0 Family history of malignant neoplasm of digestive organs
CPT/HCPCS: 45378; J1885; J2405; J2704; J3010

== ENCOUNTER → 2023-05-22 14:22 | Outpatient (CLI) | payer OTHER, SELFPAY ==
[2023-05-22 15:20] LABS: Alanine Aminotransferase 32 IU/L (<35); Albumin 4.5 g/dL (3.5-5.0); Albumin Globulin Ratio 1.5 (1.0-2.8); Alkaline Phosphatase 77 U/L (38-126); Aspartate Aminotransferase 34 IU/L (14-36); BUN Creatinine Ratio 26.1 (6-22); Bilirubin Total 0.3 mg/dL (0.2-1.3); Blood Urea Nitrogen 18 mg/dL (7-17); Calcium 9.5 mg/dL (8.4-10.2); Carbon Dioxide 28 mmol/L (22-32); Chloride 100 mmol/L (98-107); Estimated Glomerular Filt Rate > 60 mL/min (>60); Glucose 94 mg/dL (70-100); HEMOLYSIS 25 (0-50); Sodium 136 mmol/L (137-145); Total Protein 7.5 g/dL (6.3-8.2)
[2023-05-22 15:21] LABS: Potassium 5.7 mmol/L (3.4-5.1)
[2023-05-23 04:10] LABS: Cholesterol HDL Ratio 3.1 ratio (0.0-4.4); Cholesterol,Total 226 mg/dL (100-199); HDL Cholesterol 73 mg/dL (>39); LDL Cholesterol Cal 118 mg/dL (0-99); Triglycerides 202 mg/dL (0-149); VLDL Cholesterol Cal 35 mg/dL (5-40)
[2023-05-23 05:18] LABS: Labcorp Hemoglobin (Hb) A1c 5.6 % (4.8-5.6)
== END ==
PROVIDERS: PCP Nurse Practitioner Family; Referring Provider Nurse Practitioner Family; Visit Provider Nurse Practitioner Family
DX: E11.9 Type 2 diabetes mellitus without complications (principal); E78.5 Hyperlipidemia, unspecified
CPT/HCPCS: 36415; 80053; 80061; 83036

== ENCOUNTER → 2023-09-24 10:12 | Outpatient (CLI) | payer OTHER, SELFPAY ==
[2023-09-24 11:54] LABS: BUN Creatinine Ratio 23.2 (6-22); Blood Urea Nitrogen 13 mg/dL (7-17); Calcium 10.3 mg/dL (8.4-10.2); Carbon Dioxide 27 mmol/L (22-32); Chloride 99 mmol/L (98-107); Cholesterol 263 mg/dL (140-199); Estimated Glomerular Filt Rate > 60 mL/min (>60); Glucose 99 mg/dL (70-100); HDL Cholesterol 80 mg/dL (40-60); HEMOLYSIS 36 (0-50); LDL Cholesterol Calculated 166 mg/dL (<100); Sodium 135 mmol/L (137-145); Triglycerides 84 mg/dL (35-150)
[2023-09-24 11:55] LABS: Potassium 5.4 mmol/L (3.4-5.1)
== END ==
PROVIDERS: PCP Nurse Practitioner Family; Referring Provider Nurse Practitioner Family; Visit Provider Nurse Practitioner Family
DX: E78.5 Hyperlipidemia, unspecified (principal)
CPT/HCPCS: 36415; 80048; 80061

== ENCOUNTER → 2023-12-25 | Outpatient (CLI) | payer OTHER, SELFPAY ==
--- NOTE | 2023-12-25 | DI.RAD.S_ITS ---
PROCEDURE: XR DEXA AXIAL SKELETON INDICATIONS: Age-related osteoporosis COMPARISON: None. FINDINGS: This blank DEXA report has been sent in error by the PACS system. The correct and complete report will be forthcoming in 1-2 days. Thank you for your patience and understanding. Dictated by: Pal Rojas M.D. on 12/25/2023 at 12:28 Approved by: Pal Rojas M.D. on 12/25/2023 at 12:28
[2023-12-25 11:41] LABS: Hemoglobin A1C% w Est Avg Glu 4.9 % (4.0-6.0)
[2023-12-25 11:46] LABS: Alanine Aminotransferase 32 IU/L (<35); Albumin 4.7 g/dL (3.5-5.0); Albumin Globulin Ratio 1.6 (1.0-2.8); Alkaline Phosphatase 47 U/L (38-126); Aspartate Aminotransferase 35 IU/L (14-36); Bilirubin Total 0.7 mg/dL (0.2-1.3); Blood Urea Nitrogen 14 mg/dL (7-17); Calcium 9.6 mg/dL (8.4-10.2); Carbon Dioxide 30 mmol/L (22-32); Chloride 102 mmol/L (98-107); Estimated Glomerular Filt Rate > 60 mL/min (>60); Glucose 94 mg/dL (70-100); Potassium 4.9 mmol/L (3.4-5.1); Sodium 135 mmol/L (137-145); Total Protein 7.7 g/dL (6.3-8.2)
[2023-12-25 11:47] LABS: HEMOLYSIS 62 (0-50)
--- NOTE | 2023-12-25 11:59 | DI.DEXA.S_ITS ---
Bone Density Report Name: JOSELUIS MALIK Age: 58 Sex: Female Ethnicity: White Date of : 1965 Indication: postmenopausal; screening for osteoporosis; history of glucocorticoids; Referring Provider: ANNELIESE BURRELL Study: Bone densitometry was performed. Exam Date: December 25, 2023 Accession number: [id number] Bone Density: Region BMD T-score Z-score Classification AP Spine(L1-L4) 0.847 -1.8 -0.6 Osteopenia Femoral Neck (Left) 0.671 -1.6 -0.5 Osteopenia Total Hip (Left) 0.778 -1.3 -0.6 Osteopenia Femoral Neck (Right) 0.697 -1.4 -0.2 Osteopenia Total Hip (Right) 0.766 -1.4 -0.7 Osteopenia Total Hip Mean 0.772 -1.4 -0.7 Osteopenia World Health Organization criteria for BMD impression classify patients as: Normal (T-score at or above -1.0), Osteopenia (T-score between -1.0 and -2.5), or Osteoporosis (T-score at or below -2.5). 10-year Fracture Risk(1): Major Osteoporotic Fracture 11% Hip Fracture 1.2% Reported Risk Factors: [place] (), Neck BMD=0.671, BMI=21.1, glucocorticoids (1) FRAX(R) Version 3.08. Fracture probability calculated for an untreated patient. Fracture probability may be lower if the patient has received treatment. Impression: The patient has low bone mass, based on the Total Spine T-score. The patient has an estimated ten-year risk of hip fracture of 1.2% and an estimated ten-year risk of major fracture of 11%, based on the WHO FRAX algorithm. The patient has risk factors, including: history of glucocorticoid therapy. Discussion: BONE DENSITY IS LOW AT ONE OR MORE SKELETAL SITES. This patient's lowest T-score is low at one or more skeletal sites. It meets the World Health Organization's (WHO) criteria for ?low bone mass? (T-score between -1.0 and -2.5). The patient's 10-year risk of fracture as calculated by FRAX is less than the threshold where pharmacological therapy is recommended by the National Osteoporosis Foundation (NOF). However, all treatment decisions require clinical judgment and consideration of individual patient factors, including patient preferences, comorbidities, previous drug use, risk factors not captured in the FRAX model (e.g., frailty, falls, vitamin D deficiency, increased bone turnover, interval significant decline in bone density) and possible under or overestimation of fracture risk by FRAX. The patient should follow a healthful lifestyle (good nutrition with adequate calcium and vitamin D, and appropriate weight-bearing exercise). Follow-Up: Consider repeating this study in 2 to 3 years to reassess this patient's status, or sooner if there is some new clinical indication. Reported by: INGRID BIRD MD on 12/25/2023 7:24:00 PM.
[2023-12-25 12:01] LABS: Vitamin D 25 Hydroxy (D3) 116 ng/mL (30.0-100.0)
[2023-12-25 14:09] LABS: Creatinine Urine Random 91.1 mg/dL; Protein (Total) Urine Random 6 mg/dL (0-12); Protein Creatinine Ratio Urine 0.06 GRAM/24H
[2023-12-29 00:07] LABS: Cholesterol HDL Ratio 2.4 ratio (0.0-4.4); Cholesterol,Total 179 mg/dL (100-199); HDL Cholesterol 75 mg/dL (>39); LDL Cholesterol Cal 95 mg/dL (0-99); Triglycerides 42 mg/dL (0-149); VLDL Cholesterol Cal 9 mg/dL (5-40)
[2023-12-30 06:09] LABS: Parathyroid Hormone Int 28 pg/mL (15-65)
== END ==
PROVIDERS: PCP Nurse Practitioner Family; Referring Provider Nurse Practitioner Family; Visit Provider Nurse Practitioner Family
DX: E11.9 Type 2 diabetes mellitus without complications; E78.5 Hyperlipidemia, unspecified; E83.52 Hypercalcemia; M85.88 Other specified disorders of bone density and structure, other site
CPT/HCPCS: 36415; 77080; 80053; 80061; 82306; 82570; 83036; 83970; 84156